=== PATIENT | female | born 1985 | race Caucasian/White ===

== ENCOUNTER → 2016-08-21 | Outpatient (CLI) | payer OTHER | LOC: HPND 13:08 | PROVIDERS: ATTEND Obstetrics & Gynecology | DX: O28.0 Abnormal hematological finding on antenatal screening of mother (principal); Z3A.19 19 weeks gestation of pregnancy | CPT/HCPCS: 76811 ==

== ENCOUNTER → 2016-09-25 | Outpatient (CLI) | payer OTHER | LOC: HPND 07:54 | PROVIDERS: ATTEND Obstetrics & Gynecology | DX: O35.8XX0 Maternal care for other (suspected) fetal abnormality and damage, not applicable or unspecified (principal); O28.0 Abnormal hematological finding on antenatal screening of mother | CPT/HCPCS: 76816 ==

== ENCOUNTER → 2016-10-23 | Outpatient (CLI) | payer OTHER | LOC: HPND 08:33 | PROVIDERS: ATTEND Obstetrics & Gynecology | DX: O35.1XX0 Maternal care for (suspected) chromosomal abnormality in fetus, not applicable or unspecified (principal); O28.0 Abnormal hematological finding on antenatal screening of mother; O99.282 Endocrine, nutritional and metabolic diseases complicating pregnancy, second trimester | CPT/HCPCS: 76816 ==

== ENCOUNTER → 2016-11-22 | Outpatient (CLI) | payer OTHER | LOC: HPND 13:49 | PROVIDERS: ATTEND Obstetrics & Gynecology | DX: O99.282 Endocrine, nutritional and metabolic diseases complicating pregnancy, second trimester (principal); O35.2XX0 Maternal care for (suspected) hereditary disease in fetus, not applicable or unspecified | CPT/HCPCS: 76816 ==